=== PATIENT | male | born 1990 | race Caucasian/White ===

== ENCOUNTER 2016-12-18 16:09 | Emergency (ER) | payer BC ==
[2016-12-18] MEDS ORDERED: ONDANSETRON 4 MG/2 ML VIAL IVP STA (17:34)
[2016-12-18] MEDS ORDERED: SODIUM CHLORIDE 0.9% 1,000 ML IV STA (17:34)
[2016-12-18] MEDS ORDERED: TAMSULOSIN 0.4 MG CAP.ER.24H PO STA (17:35)
--- NOTE | 2016-12-18 17:41 | ED ---
General Adult HPI - General Chief complaint: Abdominal Pain Stated complaint: HEMATURIA, ABDOMINAL PAIN Time Seen by Provider: 12/18/16 17:28 Source: patient, RN notes reviewed Mode of arrival: ambulatory Limitations: no limitations - History of Present Illness Initial comments: 26-year-old female presents to the emergency department with a chief complaint of dysuria and hematuria. At this time the patient states he is on and off abdominal back pain for the last few months. Patient states he didn't of his muscle spasms or not. Then yesterday he noticed some blood clots in the urine and he noticed some dysuria along with the pains without that he should be evaluated. Patient denies any history of this in the past. Patient denies any concerns for STDs. Patient states that he was concerned due to his symptoms. That he should be evaluated. Patient denies any recent fever, chills, shortness of breath, chest pain, back pain, nausea vomiting, numbness or tingling, constipation or diarrhea, headaches or visual changes, or any other current symptoms. - Related Data Home Medications Medication Instructions Recorded Confirmed Dextroamphetamine/Amphetamine 20 mg PO DAILY 06/14/14 12/18/16 [Adderall] Previous Rx's Medication Instructions Recorded Hydrocodone/Acetaminophen [[place] 1 each PO Q6HR PRN #20 tab 12/18/16 5-325] Ketorolac [Toradol] 10 mg PO Q6HR #20 tab 12/18/16 Ondansetron Odt [Zofran ODT] 4 mg PO Q8HR PRN #20 tab 12/18/16 Tamsulosin [Flomax] 0.4 mg PO DAILY #5 cap 12/18/16 Allergies Allergy/AdvReac Type Severity Reaction Status Date / Time No Known Allergies Allergy Verified 12/18/16 17:44 Review of Systems ROS Statement: Those systems with pertinent positive or pertinent negative responses have been documented in the HPI. ROS Other: All systems not noted in ROS Statement are negative. Past Medical History Past Medical History: No Reported History Additional Past Medical History / Comment(s): anxiety, bipolar, depression History of Any Multi-Drug Resistant Organisms: None Reported Past Surgical History: No Surgical Hx Reported Past Psychological History: Anxiety, Bipolar, Depression Smoking Status: Current every day smoker Past Alcohol Use History: Occasional Past Drug Use History: None Reported General Exam Limitations: no limitations General appearance: alert, in no apparent distress ENT exam: Present: normal exam, mucous membranes moist Neck exam: Present: normal inspection. Absent: tenderness, meningismus, lymphadenopathy Respiratory exam: Present: normal lung sounds bilaterally. Absent: respiratory distress, wheezes, rales, rhonchi, stridor Cardiovascular Exam: Present: regular rate, normal rhythm, normal heart sounds. Absent: systolic murmur, diastolic murmur, rubs, gallop, clicks GI/Abdominal exam: Present: soft, normal bowel sounds. Absent: distended, tenderness, guarding, rebound, rigid Back exam: Present: normal inspection. Absent: CVA tenderness (R), CVA tenderness (L) Neurological exam: Present: alert, oriented X3 Psychiatric exam: Present: normal affect, normal mood Skin exam: Present: warm, dry, intact, normal color. Absent: rash Course Vital Signs 12/18/16 16:15 Temperature 97.5 F L Pulse Rate 104 H Respiratory 20 Rate Blood Pressure 136/82 O2 Sat by Pulse 99 Oximetry Medical Decision Making - Medical Decision Making 26-year-old male presents emergency department with a chief complaint of hematuria and dysuria. This time patient's urine does show some suspicion for kidney stones with the positive hematuria. CT does not show any evidence of this. Due to the patient's symptoms in the urine or suspicion for this. We discussed we will give the patient for pain medications and follow-up to urology. We discussed return parameters. We did discuss off on additional results are pending. We discussed all patient's family's questions. He stated he understood their agreement with the plan. They will be discharged home. - Lab Data Result diagrams: 12/18/16 17:40 12/18/16 17:40 Lab Results 12/18/16 12/18/16 12/18/16 Range/Units 17:40 17:40 17:40 WBC 6.7 (3.8-10.6) k/uL RBC 5.00 (4.30-5.90) m/uL Hgb 15.6 (13.0-17.5) gm/dL Hct 43.4 (39.0-53.0) % MCV 86.8 (80.0-100.0) fL MCH 31.1 (25.0-35.0) pg MCHC 35.9 (31.0-37.0) g/dL RDW 13.1 (11.5-15.5) % Plt Count 191 (150-450) k/uL Neutrophils % 51 % Lymphocytes % 38 % Monocytes % 6 % Eosinophils % 2 % Basophils % 1 % Neutrophils # 3.4 (1.3-7.7) k/uL Lymphocytes # 2.6 (1.0-4.8) k/uL Monocytes # 0.4 (0-1.0) k/uL Eosinophils # 0.1 (0-0.7) k/uL Basophils # 0.0 (0-0.2) k/uL Sodium 142 (137-145) mmol/L Potassium 3.5 (3.5-5.1) mmol/L Chloride 109 H (98-107) mmol/L Carbon Dioxide 21 L (22-30) mmol/L Anion Gap 12 mmol/L BUN 10 (9-20) mg/dL Creatinine 0.90 (0.66-1.25) mg/dL Est GFR (MDRD) Af Amer >60 (>60 ml/min/1.73 sqM) Est GFR (MDRD) Non-Af >60 (>60 ml/min/1.73 sqM) Glucose 81 (74-99) mg/dL Calcium 9.2 (8.4-10.2) mg/dL Total Bilirubin 0.8 (0.2-1.3) mg/dL AST 22 (17-59) U/L ALT 30 (21-72) U/L Alkaline Phosphatase 74 (38-126) U/L Total Protein 7.4 (6.3-8.2) g/dL Albumin 4.4 (3.5-5.0) g/dL Amylase 52 (30-110) U/L Lipase 28 (23-300) U/L Urine Color Yellow Urine Appearance Clear (Clear) Urine pH 6.0 (5.0-8.0) Ur Specific [place] 1.025 (1.001-1.035) Urine Protein Trace H (Negative) Urine Glucose (UA) Negative (Negative) Urine Ketones 2+ H (Negative) Urine Blood Moderate H (Negative) Urine Nitrite Negative (Negative) Urine Bilirubin Negative (Negative) Urine Urobilinogen 2.0 (<2.0) mg/dL Ur Leukocyte Esterase Negative (Negative) Urine RBC 7 H (0-5) /hpf Urine WBC 3 (0-5) /hpf Ur Squamous Epith Cells <1 (0-4) /hpf Calcium Oxalate Crystal Few H (None) /hpf Amorphous Sediment Rare H (None) /hpf Urine Mucus Occasional H (None) /hpf Disposition Clinical Impression: Right flank pain, Hematuria Disposition: HOME SELF-CARE Condition: Stable Instructions: Flank Pain (ED) Additional Instructions: Please use medication as discussed. Please follow up with family doctor if symptoms have not improved over the next two days. Please return to the emergency room if your symptoms increase or worsen or for any other concerns. Prescriptions: Hydrocodone/Acetaminophen [[place] 5-325] 1 each PO Q6HR PRN #20 tab PRN Reason: Pain Ketorolac [Toradol] 10 mg PO Q6HR #20 tab Ondansetron Odt [Zofran ODT] 4 mg PO Q8HR PRN #20 tab PRN Reason: Nausea Tamsulosin [Flomax] 0.4 mg PO DAILY #5 cap Referrals: Norberto Galeano MD [Primary Care Provider] - 1-2 days Bernardo Summers MD [STAFF PHYSICIAN] - 1-2 days Time of Disposition: 18:36
[2016-12-18 17:51] LABS: Basophils % (A) 1 %; CH 31.1; Eosinophils # (A) 0.1 k/uL (0-0.7); Eosinophils % (A) 2 %; HCT 43.4 % (39.0-53.0); HDW 2.82; HGB 15.6 gm/dL (13.0-17.5); Luc # (Auto) 0.12; Luc % (Auto) 2; Lymphocytes # (A) 2.6 k/uL (1.0-4.8); Lymphocytes % (A) 38 %; MCH 31.1 pg (25.0-35.0); MCHC 35.9 g/dL (31.0-37.0); MCV 86.8 fL (80.0-100.0); Mean Platelet Volume 7.7; Monocytes # (A) 0.4 k/uL (0-1.0); Monocytes % (A) 6 %; Neutrophils # (A) 3.4 k/uL (1.3-7.7); Neutrophils % (A) 51 %; RDW 13.1 % (11.5-15.5); WBC 6.7 k/uL (3.8-10.6)
[2016-12-18 18:00] LABS: Amorphous Sediment,Urine Rare /hpf; Appearance,Urine Clear (Clear); Bilirubin,Urine Negative (Negative); Calcium Oxalate Crystals,Urine Few /hpf; Glucose,Urine (UA) Negative (Negative); Ketones,Urine 2+ (Negative); Leukocyte Esterase,Urine Negative (Negative); Mucus,Urine Occasional /hpf; Nitrite,Urine Negative (Negative); Particle Count 3117; Protein,Urine Trace (Negative); RBC,Urine 7 /hpf (0-5); Specific Gravity,Urine 1.025 (1.001-1.035); Squamous Epithelial Cell,Urine <1 /hpf (0-4); UA Billing (MACRO vs. MICRO) MICRO; WBC,Urine 3 /hpf (0-5)
[2016-12-18 18:03] LABS: ALT 30 U/L (21-72); AST 22 U/L (17-59); Alkaline Phosphatase 74 U/L (38-126); Amylase 52 U/L (30-110); Anion Gap 12 mmol/L; Blood Urea Nitrogen 10 mg/dL (9-20); Calcium 9.2 mg/dL (8.4-10.2); Carbon Dioxide 21 mmol/L (22-30); Chloride 109 mmol/L (98-107); Glucose 81 mg/dL (74-99); Non-African American GFR(MDRD) >60 (>60 ml/min/1.73 sqM); Potassium 3.5 mmol/L (3.5-5.1); Sodium 142 mmol/L (137-145); Total Bilirubin 0.8 mg/dL (0.2-1.3); Total Protein 7.4 g/dL (6.3-8.2)
--- NOTE | 2016-12-18 18:19 | CT ---
EXAMINATION TYPE: CT abdomen pelvis wo con DATE OF EXAM: 12/18/2016 6:08 PM COMPARISON: 11/23/2011 HISTORY: Patient complains of gross hematuria and generalized abdominal pain. CT DLP: 318.5 mGycm FINDINGS: LUNG BASES: No evidence for nodule. No evidence for infiltrate. LIVER/GB: The gallbladder is unremarkable. No space-occupying hepatic lesion. PANCREAS: No pancreatic mass identified. No inflammatory process seen. SPLEEN: No evidence for splenomegaly. No intrasplenic lesions seen. ADRENALS: No adrenal nodules identified. No evidence for thickening. KIDNEYS: No evidence for renal mass. No nephrolithiasis. No hydronephrosis. Urinary bladder is poorly distended. BOWEL: Appendix has a normal appearance. No evidence of bowel obstruction. No inflammatory process. Lymph nodes: No evidence for adenopathy greater than 1 cm. Abdominal aorta: Atheromatous changes seen. No evidence for aneurysm. Genital organs: No significant abnormality. Other: No significant abnormality. IMPRESSION: NO SIGNIFICANT ABNORMALITY IDENTIFIED TO ACCOUNT FOR THE PATIENT'S SYMPTOMS.
[2016-12-18 18:39] VITALS: BP 118/70; PULSE 70; RESP 16; TEMP 97.6
== END 2016-12-18 18:45 | disposition home or self-care (01) ==
LOC: EC 16:09
DX: R10.9 Unspecified abdominal pain (principal); R31.9 Hematuria, unspecified; R30.0 Dysuria; M54.9 Dorsalgia, unspecified; F31.9 Bipolar disorder, unspecified; F41.9 Anxiety disorder, unspecified; F17.200 Nicotine dependence, unspecified, uncomplicated; Z79.899 Other long term (current) drug therapy
CPT/HCPCS: 36415; 80053; 82150; 83690; 85025; 81001; 87491; 87591; 87086; 74176; 99284; 96374; 96361; J2405

== ENCOUNTER 2017-02-11 13:16 | Emergency (ER) | payer BC ==
[2017-02-11 13:34] VITALS: BP 124/80; PULSE 102; RESP 20; TEMP 99.2
[2017-02-11] MEDS ORDERED: PROPARACAINE 0.5% OPHTH DROPS 15 ML BTL LEFT EYE STA (13:45)
--- NOTE | 2017-02-11 13:56 | ED ---
Eye Problem HPI - General Chief complaint: Eye Problems Stated complaint: FB L eye Time Seen by Provider: 02/11/17 13:42 Source: patient, RN notes reviewed Mode of arrival: ambulatory Limitations: no limitations - History of Present Illness Initial comments: 26 yo male presents to the ER with cc of left eye irritation. patient states the last week or so he had this irritation to the left eye. Patient states he 14 are slightly as well as her/he states his pain is mostly on he looks down. Patient nausea vomiting. Patient states he hasn't had any other symptoms at this time so he was concerned. There is been no cough cold runny nose. Patient states that be evaluated due to his symptoms. Patient denies any recent fever, chills, shortness of breath, chest pain, back pain, abdominal pain, nausea vomiting, numbness or tingling, dysuria or hematuria, constipation or diarrhea, headaches or visual changes, or any other current symptoms. - Related Data Home Medications Medication Instructions Recorded Confirmed Dextroamphetamine/Amphetamine 20 mg PO DAILY 06/14/14 02/11/17 [Adderall] Medical Marijuana 02/11/17 Allergies Allergy/AdvReac Type Severity Reaction Status Date / Time No Known Allergies Allergy Verified 02/11/17 13:34 Review of Systems ROS Statement: Those systems with pertinent positive or pertinent negative responses have been documented in the HPI. ROS Other: All systems not noted in ROS Statement are negative. Past Medical History Past Medical History: No Reported History Additional Past Medical History / Comment(s): anxiety, bipolar, depression History of Any Multi-Drug Resistant Organisms: None Reported Past Surgical History: No Surgical Hx Reported Past Psychological History: Anxiety, Bipolar, Depression Smoking Status: Current every day smoker Past Alcohol Use History: Occasional Past Drug Use History: None Reported General Exam Limitations: no limitations General appearance: alert, in no apparent distress Head exam: Present: atraumatic, normocephalic, normal inspection Eye exam: Present: normal appearance, PERRL, EOMI. Absent: scleral icterus, conjunctival injection, periorbital swelling ENT exam: Present: normal exam, mucous membranes moist Respiratory exam: Present: normal lung sounds bilaterally. Absent: respiratory distress, wheezes, rales, rhonchi, stridor Cardiovascular Exam: Present: regular rate, normal rhythm, normal heart sounds. Absent: systolic murmur, diastolic murmur, rubs, gallop, clicks Neurological exam: Present: alert, oriented X3 Psychiatric exam: Present: normal affect, normal mood Course Vital Signs 02/11/17 13:32 Temperature 99.2 F Pulse Rate 102 H Respiratory 20 Rate Blood Pressure 124/80 O2 Sat by Pulse 99 Oximetry Medical Decision Making - Medical Decision Making 26-year-old male presents for left eye irritation. This and the with lamp examination does not show any abnormalities. This time we did give him follow- up Doppler we discussed return parameters all questions. He stated he understood these. Patient will be discharged home. Disposition Clinical Impression: Irritation of left eye Disposition: HOME SELF-CARE Condition: Stable Instructions: Eye Lubricant (Into the eye) Additional Instructions: Please use medication as discussed. Please follow up with family doctor if symptoms have not improved over the next two days. Please return to the emergency room if your symptoms increase or worsen or for any other concerns. Referrals: Norberto Galeano MD [Primary Care Provider] - 1-2 days Yves Riley MD [STAFF PHYSICIAN] - 1-2 days Time of Disposition: 14:00
== END 2017-02-11 14:20 | disposition home or self-care (01) ==
LOC: EC 13:16
DX: H57.8 Other specified disorders of eye and adnexa (principal); H57.12 Ocular pain, left eye; R11.2 Nausea with vomiting, unspecified; F17.200 Nicotine dependence, unspecified, uncomplicated; Z79.899 Other long term (current) drug therapy
CPT/HCPCS: 99282